=== PATIENT | male | born 1990 | race Caucasian/White ===

== ENCOUNTER 2018-11-21 14:50 | Emergency (ER) | payer SELFPAY ==
[2018-11-21 16:22] VITALS: BP 140/92
[2018-11-21] MEDS ORDERED: Penicillin VK TAB* 250 MG PO ONE (16:31)
--- NOTE | 2018-11-21 16:32 | UC ---
Dental HPI - HPI Summary HPI Summary: The patient is a 27-year-old male with a right upper toothache 24 hours. Today the pain has markedly increased. He has right facial swelling. The area in question is where he had a root canal done years ago. He denies any fever or chills. He denies any history of diabetes or heart murmur. - History of Current Complaint Chief Complaint: UCDentalProblem Stated Complaint: DENTAL/ORAL COMPLAINT Time Seen by Provider: 11/21/18 16:08 Hx Obtained From: Patient Onset/Duration: Gradual Onset, Lasting Hours Severity: Severe Pain Intensity: 9 - declines analgesic Pain Scale Used: 0-10 Numeric Aggravating Factor(s): Heat, Cold, Chewing Alleviating Factor(s): OTC Meds Related History: Previous Dental Care on Same Tooth, Swelling Dental: 1 - abscess - Allergies/Home Medications Allergies/Adverse Reactions: Allergies Allergy/AdvReac Type Severity Reaction Status Date / Time No Known Allergies Allergy Verified 11/21/18 16:18 PMH/Surg Hx/FS Hx/Imm Hx Previously Healthy: Yes - Surgical History Surgical History: None - Family History Known Family History: Positive: Hypertension - Social History Alcohol Use: Occasionally Substance Use Type: None Smoking Status (MU): Heavy Every Day Tobacco Smoker Type: Cigarettes Amount Used/How Often: 1 PPD Review of Systems All Other Systems Reviewed And Are Negative: Yes Constitutional: Positive: Negative Skin: Positive: Negative Eyes: Positive: Negative ENT: Positive: Dental Pain Respiratory: Positive: Negative Cardiovascular: Positive: Negative Gastrointestinal: Positive: Negative Genitourinary: Positive: Negative Motor: Positive: Negative Neurovascular: Positive: Negative Musculoskeletal: Positive: Negative Neurological: Positive: Negative Psychological: Positive: Negative Physical Exam Triage Information Reviewed: Yes Appearance: Well-Appearing, No Pain Distress, Well-Nourished Vital Signs: Initial Vital Signs Temp 98.9 F 11/21/18 16:18 Pulse 71 11/21/18 16:18 Resp 17 11/21/18 16:18 BP 140/92 11/21/18 16:18 Pulse Ox 100 11/21/18 16:18 Vital Signs Reviewed: Yes Eyes: Positive: Conjunctiva Clear Dental: Positive: Abscess @ Neck: Positive: Supple, Nontender, No Lymphadenopathy Respiratory: Positive: Lungs clear, Normal breath sounds, No respiratory distress, No accessory muscle use Cardiovascular: Positive: RRR, No Murmur Musculoskeletal: Positive: ROM Intact, No Edema Neurological: Positive: Alert Psychological Exam: Normal Skin Exam: Normal Dental Complaint Course/Dx - Differential Dx/Diagnosis Provider Diagnosis: Dental abscess, Elevated blood pressure reading in office without diagnosis of hypertension Discharge - Sign-Out/Discharge Documenting (check all that apply): Patient Departure All imaging exams completed and their final reports reviewed: No Studies - Discharge Plan Condition: Stable Disposition: HOME Patient Education Materials: Dental Abscess (ED) Referrals: No Primary Care Phys,NOPCP [Primary Care Provider] - Additional Instructions: heat aleve 2 twice daily with food tylenol recheck for new or worsening symptoms see dentist first available appt - Billing Disposition and Condition Condition: STABLE Disposition: Home
== END 2018-11-21 16:38 | disposition home or self-care (01) ==
LOC: UCCORT 14:50
DX: K04.7 Periapical abscess without sinus (principal); R03.0 Elevated blood-pressure reading, without diagnosis of hypertension; F17.210 Nicotine dependence, cigarettes, uncomplicated
CPT/HCPCS: 99202; A9270-GY; G0463

== ENCOUNTER 2020-01-22 07:01 | Emergency (ER) | payer BC ==
--- NOTE | 2020-01-22 07:17 | UC ---
Respiratory Complaint HPI - HPI Summary HPI Summary: 29 year old male presents with 1 week history of cough and congestion. Developed right ear pain yesterday. Did note chills but did not check his temp. DayQuil provided some relief. - History of Current Complaint Stated Complaint: CONGESTION, COUGH, EAR PAIN Time Seen by Provider: 01/22/20 07:15 Hx Obtained From: Patient Onset/Duration: Gradual Onset, Lasting Weeks - one Associated Signs And Symptoms: Positive: Chills, URI, Nasal Congestion. Negative: Dyspnea, Fever, Pleuritic Chest Pain, Wheezing, Hemoptysis - Allergies/Home Medications Allergies/Adverse Reactions: Allergies Allergy/AdvReac Type Severity Reaction Status Date / Time No Known Allergies Allergy Verified 01/22/20 07:17 Home Medications: Home Medications Amoxicillin PO (*) [Amoxicillin 500 MG CAP*] 500 mg PO TID 10 Days #30 cap 01/21 [Rx] D-Methorphan/PE/Acetaminophen [Daytime Cold Multi-Symp Gelcap] 1 dose PO ONCE [History Confirmed 01/22/20] PMH/Surg Hx/FS Hx/Imm Hx Previously Healthy: No - Surgical History Surgical History: None - Family History Known Family History: Positive: Hypertension Family History: brother with asthma - Social History Alcohol Use: Occasionally Substance Use Type: None Smoking Status (MU): Heavy Every Day Tobacco Smoker Type: Cigarettes Amount Used/How Often: 1 PPD Review of Systems All Other Systems Reviewed And Are Negative: Yes Constitutional: Positive: Chills Skin: Positive: Negative Eyes: Positive: Negative ENT: Positive: Ear Ache - right x 1 day, Nasal Discharge, Sinus Congestion. Negative: Sore Throat, Sinus Pain/Tenderness Respiratory: Positive: Cough. Negative: Shortness Of Breath Cardiovascular: Negative: Palpitations, Chest Pain Gastrointestinal: Negative: Abdominal Pain, Vomiting, Diarrhea, Nausea Genitourinary: Positive: Negative Motor: Positive: Negative Neurovascular: Positive: Negative Musculoskeletal: Positive: Negative Neurological/Mental Status: Positive: Negative Psychological: Positive: Negative Is Patient Immunocompromised?: No Physical Exam Triage Information Reviewed: Yes Appearance: Well-Appearing Vital Signs Reviewed: Yes Eye Exam: Normal ENT: Positive: Pharynx normal, Nasal congestion, TM bulging - right, left normal , TM red - right, left normal, Uvula midline. Negative: Tonsillar swelling, Tonsillar exudate, Sinus tenderness Neck: Positive: Supple, No Lymphadenopathy Respiratory: Positive: Lungs clear, Normal breath sounds. Negative: Crackles, Rhonchi, Wheezing Cardiovascular: Positive: RRR, No Murmur Abdomen Description: Positive: Nontender, Soft Musculoskeletal Exam: Normal Neurological Exam: Normal Psychological Exam: Normal Skin Exam: Normal Respiratory Course/Dx - Differential Dx/Diagnosis Differential Diagnosis/HQI/PQRI: Bronchitis, Sinusitis Provider Diagnosis: Right otitis media, Upper respiratory infection Discharge ED - Sign-Out/Discharge Documenting (check all that apply): Patient Departure All imaging exams completed and their final reports reviewed: No Studies - Discharge Plan Condition: Stable Disposition: HOME Prescriptions: Amoxicillin PO (*) [Amoxicillin 500 MG CAP*] 500 mg PO TID 10 Days #30 cap Patient Education Materials: Ear Infection (ED) Referrals: No Primary Care Phys,NOPCP [Primary Care Provider] - Additional Instructions: Drink plenty of fluids, take Tylenol or ibuprofen over the counter as needed for pain. Take all amoxicillin as prescribed. Follow-up with your Primary Care Physician if your symptoms persist or worsen. - Billing Disposition and Condition Condition: STABLE Disposition: Home
[2020-01-22 07:19] VITALS: BP 132/82
[2020-01-22 07:33] LABS: Influenza A Molecular Negative (Negative); Influenza B Molecular Negative (Negative)
== END 2020-01-22 07:37 | disposition home or self-care (01) ==
LOC: UCCORT 07:01
DX: H66.91 Otitis media, unspecified, right ear (principal); J06.9 Acute upper respiratory infection, unspecified
CPT/HCPCS: 99212; G0463